=== PATIENT | female | born 1955 | race Caucasian/White ===

== ENCOUNTER 2020-10-09 12:02 | Emergency (ER) | payer MEDICARE, OTHER ==
[~2020-10-09] VITALS: Ht 165.1 cm; Wt 80.0 kg
[2020-10-09] MEDS ORDERED: ASPIRIN CHEWABLE 81 MG TABLET. PO ONE (13:00)
[2020-10-09 13:11] LABS: BASO # 0.1 x10^3/uL (0.0-0.2); BASO % 1 % (0-3); EOS # 0.1 x10^3/uL (0.0-0.7); EOS % 2 % (0-3); HEMATOCRIT 46.7 % (36.0-47.0); HEMOGLOBIN 15.5 g/dL (12.0-15.5); LYMPH % 29 % (24-48); MEAN CORPUSCULAR HEMOGLOBIN 30 pg (25-35); MEAN CORPUSCULAR HGB CONC 33 g/dL (31-37); MEAN CORPUSCULAR VOLUME 89 fL (79-100); MONO # 0.6 x10^3/uL (0.0-1.1); MONO % 9 % (0-9); NEUT # 4.1 x10^3uL (1.8-7.7); NEUT % 60 % (31-73); PLATELET COUNT 274 x10^3/uL (140-400); RED BLOOD COUNT 5.24 x10^6/uL (3.50-5.40); RED CELL DISTRIBUTION WIDTH 13.6 % (11.5-14.5); WHITE BLOOD COUNT 6.9 x10^3/uL (4.0-11.0)
--- NOTE | 2020-10-09 13:21 | RAD ---
Study: XR CHEST 2V Indication: Chest pain. Comparison: None recently. Findings: Valvular prosthesis and a solitary median sternotomy wire. The cardiomediastinal silhouette is within normal limits for size. Aortic calcific atherosclerosis. U nremarkable charles. No focal airspace infiltrate, pleural effusion or pneumothorax. Impression: No acute radiographic abnormality of the chest. Electronically signed by: LUNA CARRANZA MD (10/09/2020 1:19 PM) [id number]
[2020-10-09 13:35] LABS: CALCIUM 9.3 mg/dL (8.5-10.1); CREATININE 0.8 mg/dL (0.6-1.0); POTASSIUM 4.7 mmol/L (3.5-5.1)
[2020-10-09] MEDS ORDERED: IOHEXOL 350 MG/ML 100 ML VIAL. IV ONE (13:45)
--- NOTE | 2020-10-09 14:14 | RAD ---
EXAM: CT angiography of the chest with intravenous contrast. HISTORY: Chest pain. Shortness of breath. TECHNIQUE: Computed tomographic images of the chest were obtained following the administration of int ravenous contrast according to angiography protocol. Multiplanar reformatting was performed and three dimensional maximum intensity projection images were obtained. *One or more of the following individualized dose reduction techniques were utilized for this examina tion: 1. Automated exposure control. 2. Adjustment of the mA and/or kV according to patient size. 3. Use of iterative reconstruction technique. COMPARISON: None. FINDINGS: There is no pulmonary embolism. There is aneurysmal dilatation of the ascending aorta to a caliber of 4.3 cm. There is evidence of prior aortic valve surgery. There is calcified atheroscleroti c plaque involving the coronary arteries. There is no aortic dissection. There is no mediastinal or h ilar lymphadenopathy. There is no pneumothorax. There is no pleural effusion. There is minimal pulmonary emphysema and lowe r lobe predominant air trapping. There is basilar atelectasis. There is no infiltrate or suspicious p ulmonary nodule. There is no acute finding involving the upper abdomen. There is no suspicious osseou s lesion. There is no acute osseous finding. IMPRESSION: 1. No evidence of pulmonary embolism or alternative acute thoracic finding. 2. Minimal emphysema with lower lobe predominant air trapping. There is no focal infiltrate. 3. Aneurysmal dilatation of the ascending aorta to a caliber of 4.3 and evidence of prior aortic valv e surgery. Electronically signed by: Katarina Tracey MD (10/09/2020 2:11 PM) [id number]
--- NOTE | 2020-10-09 14:16 | PHYS DOC ---
Past History Past Medical History: Hypertension, Hypothyroid, Other Additional Past Medical Histor: cardiac Past Surgical History: Appendectomy, Cholecystectomy, , Other Additional Past Surgical Histo: cardiac, Alcohol Use: None Adult General Chief Complaint Chief Complaint: CHEST PAIN HPI HPI Patient is a 65 year old female who presents to the Emergency Room who presents to the emergency room complaining of intermittent left-sided chest pain. Patient states that this morning she was feeling fatigued and not quite right. She has been fasting since 11 PM last night he had lab work drawn at 10 AM this morning. She then started having these intermittent left lower chest pains. She states she has a hard time describing what they feel like. She states that they come on and last about 10 to 15 seconds and then recur every few minutes. She does not have any associated shortness of breath, nausea, diaphoresis. She does not have any radiation of pain. She states that she has had a sternotomy and does have a sternal wire and there that she is concerned could be causing the pain. She denies any recent illnesses. Review of Systems Review of Systems Complete ROS is negative unless otherwise documented in HPI Current Medications Current Medications Current Medications Medications (Trade) Dose Ordered Sig/Brian Start Time Stop Time Status Last Admin Dose Admin Aspirin (Aspirin Chewable) 324 mg 1X ONCE 10/09/20 13:00 10/09/20 13:03 DC 10/09/20 13:20 324 MG Iohexol (Omnipaque 350 Mg/ml) 100 ml 1X ONCE 10/09/20 13:45 10/09/20 13:51 DC 10/09/20 13:59 100 ML Allergies Allergies Allergies Coded Allergies Type Severity Reaction Last Updated Verified acetaminophen Allergy Unknown 10/09/20 Yes hydrocodone Allergy Unknown 10/09/20 Yes metronidazole Allergy Unknown 10/09/20 Yes oxycodone Allergy Unknown 10/09/20 Yes simvastatin Allergy Unknown 10/09/20 Yes Physical Exam Physical Exam General: Awake, alert, NAD. Well Nourished, well hydrated. Cooperative HEENT: Atraumatic, EOMI, PERRL, airway patent, moist oral mucosa Neck: Supple, trachea midline Respiratory: CTA bilaterally, normal effort, no wheezing/crackles CV: RRR, no murmur, cap refill <2 GI: Soft, nondistended, nontender, no masses MSK: No obvious deformities Skin: Warm, dry, intact Neuro: A&O x3, speech NL, sensory and motor grossly intact, no focal deficits Psych: Normal affect, normal mood, not suicidal or homicidal Current Patient Data Vital Signs Vital Signs Date Time Temp Pulse Resp B/P (MAP) Pulse Ox O2 Delivery O2 Flow Rate FiO2 10/09/20 12:15 98.4 59 16 158/73 (101) 98 Room Air Lab Results Laboratory Tests Test 10/09/20 12:49 White Blood Count 6.9 x10^3/uL (4.0-11.0) Red Blood Count 5.24 x10^6/uL (3.50-5.40) Hemoglobin 15.5 g/dL (12.0-15.5) Hematocrit 46.7 % (36.0-47.0) Mean Corpuscular Volume 89 fL (79-100) Mean Corpuscular Hemoglobin 30 pg (25-35) Mean Corpuscular Hemoglobin Concent 33 g/dL (31-37) Red Cell Distribution Width 13.6 % (11.5-14.5) Platelet Count 274 x10^3/uL (140-400) Neutrophils (%) (Auto) 60 % (31-73) Lymphocytes (%) (Auto) 29 % (24-48) Monocytes (%) (Auto) 9 % (0-9) Eosinophils (%) (Auto) 2 % (0-3) Basophils (%) (Auto) 1 % (0-3) Neutrophils # (Auto) 4.1 x10^3uL (1.8-7.7) Lymphocytes # (Auto) 2.0 x10^3/uL (1.0-4.8) Monocytes # (Auto) 0.6 x10^3/uL (0.0-1.1) Eosinophils # (Auto) 0.1 x10^3/uL (0.0-0.7) Basophils # (Auto) 0.1 x10^3/uL (0.0-0.2) Sodium Level 143 mmol/L (136-145) Potassium Level 4.7 mmol/L (3.5-5.1) Chloride Level 107 mmol/L (98-107) Carbon Dioxide Level 27 mmol/L (21-32) Anion Gap 9 (6-14) Blood Urea Nitrogen 12 mg/dL (7-20) Creatinine 0.8 mg/dL (0.6-1.0) Estimated GFR (Cockcroft-Gault) 72.0 Glucose Level 109 mg/dL (70-99) H Calcium Level 9.3 mg/dL (8.5-10.1) Troponin I Quantitative < 0.017 ng/mL (0-0.055) IB-Pmc-C-Type Natriuretic Peptide 49 pg/mL (0-124) EKG EKG [] Radiology/Procedures Radiology/Procedures [] Heart Score C/O Chest Pain: Yes HEART Score for Chest Pain: HEART Score for Chest Pain Response (Comments) Value History Slighlty/Non-Suspicious 0 ECG Normal 0 Age > 65 2 Risk Factors 1 or 2 Risk Factors 1 Troponin < Normal Limit 0 Total 3 Risk Factors: Risk Factors: DM, Current or recent (<one month) smoker, HTN, HLP, family histo ry of CAD, obesity. Risk Scores: Risk Factors: DM, Current or recent (<one month) smoker, HTN, HLP, family history of CAD, obesity. Course & Med Decision Making Course & Med Decision Making Pertinent Labs and Imaging studies reviewed. (See chart for details) Patient is a 65 year-old female who presents to the Emergency Room complaining of chest pain. History is significant for history of sternotomy. At this time, given patient's risk factors and story there is concern for possible cardiac pathology. EKG was ordered and shows normal sinus rhythm. At this time there is no signs of STEMI, pericarditis, or unstable arrthymia on EKG. Patient has received aspirin today. CBC, BMP, troponin, CXR were ordered to evaluate for causes of chest pain including ACS, anemia, electrolyte abnormalities that can lead to arrhythmias, PTX, pneumonia, pneumomediastinum. Patient does not have any abdominal tenderness that would suggest pancreaititis or cholecystitis and does not need an abdominal work up at this time. Patient's HEART score is 3 placing the patient at low risk. Patient has had a cardiac cath 5 years ago that she reports was completely normal. She did discuss getting a repeat cardiac cath with her sugar refiner in June who stated he did not feel like she needed 1 at that time because it had not been enough time for her to develop sig nificant plaque. CT scan shows some coronary calcifications but otherwise is normal. I have discussed this finding with the patient and recommended that she discuss this with her sugar refiner. I have discussed with the patient that she has the option of being admitted versus calling her sugar refiner tomorrow morning. Patient would like to go home. She will return if her pain returns. Patient's test results and vitals while in the ED were fully reviewed and discussed with the patient. Patient is stable and at this time does not need admission to the hospital. We have discussed strict return precautions and the importance of following up with their Primary Care Physician. Patient stated understanding and was given an opportunity to ask any questions. Patient is in agreement with plan. Dragon Disclaimer Dragon Disclaimer This electronic medical record was generated, in whole or in part, using a voice recognition dictation system. Departure Departure: Impression: Primary Impression: Chest pain Disposition: HOME / SELF CARE / HOMELESS Condition: STABLE Referrals: PCP,NO (PCP) Patient Instructions: Chest Pain (Nonspecific) MURTAZA MARIN MD Oct 09, 2020 14:16
[2020-10-09 15:51] VITALS: BP 110/56
--- NOTE | 2020-10-09 21:35 | EKG ---
[address] [address] Test Date: 2020-10-09 Test Time: 12:16:42 Pat Name: JUANITO ALCANTAR Department: Room: Gender: F Security Systems Manager: KAROLYN : 1955 Requested By: MURTAZA MARIN Order Number: [id number] Reading MD: Measurements Intervals [place] Rate: 57 P: 59 NE: 144 QRS: 39 QRSD: 92 T: 70 QT: 410 QTc: 402 Interpretive Statements SINUS RHYTHM T ABNORMALITY IN HIGH LATERAL LEADS ABNORMAL ECG RI6.02 No previous ECG available for comparison
== END 2020-10-09 16:54 | disposition home or self-care (01) ==
LOC: ER 12:02
DX: R07.89 Other chest pain (principal); R53.83 Other fatigue; I10 Essential (primary) hypertension; E03.9 Hypothyroidism, unspecified; Z88.5 Allergy status to narcotic agent; Z88.8 Allergy status to other drugs, medicaments and biological substances
CPT/HCPCS: 36415; 71046; 71275; 80048; 83880; 84484; 85025; 93005; 99285; Q9967

== ENCOUNTER → 2021-06-18 | Outpatient (CLI) | payer MEDICARE, OTHER ==
[~2021-06-18] MED LIST: IOHEXOL 300 MG/ML 75 ML VIAL. IV ONE
--- NOTE | 2021-06-18 08:45 | RAD ---
PQRS Compliance Statement: One or more of the following individualized dose reduction techniques were utilized for this examinat ion: 1. Automated exposure control 2. Adjustment of the mA and/or kV according to patient size 3. Use of iterative reconstruction technique CT NECK SOFT TISSUE WITH IV CONTRAST Clinical Indication: Reason: NECK FULLNESS BB BENOIT LUMP Comparison: None. TECHNIQUE: Helical CT imaging of the soft tissues of the neck is performed after 75 cc of Omnipaque 3 00 IV contrast. Findings: The visualized brain is unremarkable. The globes and orbits are intact. The paranasal sinuses and mas toid air cells are clear. The parotid and submandibular glands are symmetric. The metallic BB is just lateral to the right subm andibular gland and is anterolateral to the sternocleidomastoid muscle. The right platysma is symmetr ic with the contralateral side. The sternocleidomastoid muscles are symmetric. No mass, cyst, or lymp h node is identified in this location. There is no subcutaneous inflammation. The thyroid is symmetric. There is no cervical adenopathy. There are a few subcentimeter lymph nodes bilaterally. The upper lungs are clear. There is mild degenerative spondylosis and facet arthropathy of the cervical spine. IMPRESSION: There is no focal abnormality at the area of neck fullness as marked by metallic BB. Please see above discussion. Electronically signed by: Juan Manuel Irene MD (06/18/2021 8:42 AM) [id number]
== END ==
LOC: CT 07:44
PROVIDERS: ATTEND Physician Assistant Medical
DX: R22.1 Localized swelling, mass and lump, neck (principal); M47.812 Spondylosis without myelopathy or radiculopathy, cervical region; M48.8X2 Other specified spondylopathies, cervical region; Z18.10 Retained metal fragments, unspecified
CPT/HCPCS: 70491; Q9967